=== PATIENT | male | born 1960 | race Caucasian/White ===

== ENCOUNTER 2017-11-24 20:24 | Emergency (ER) | payer OTHER ==
[2017-11-24] MEDS ORDERED: Sodium Chloride 0.9% 1,000 ML ONE (20:44)
[2017-11-24] MEDS ORDERED: Ondansetron HCl/PF 4 MG/2 ML Vial ONE (21:00)
[2017-11-24] MEDS ORDERED: Ketorolac Tromethamine 30 MG/ML VIAL ONE (21:00)
[2017-11-24 21:02] LABS: #Basophils 0.1 thou/uL (0.0-0.2); #Eosinphils 0.3 thou/uL (0.0-0.7); #Lymphocytes 1.3 thou/uL (1.20-3.40); #Monocytes 0.9 thou/uL (0.11-0.59); #Neutrophils 7.9 thou/uL (1.40-6.50); %Basophils 0.9 % (0.0-1.0); %Eosinophils 2.4 % (0.0-10.0); %Lymphocytes 12.3 % (21.0-51.0); %Neutrophils 75.4 % (42.0-75.0); Bilirubin Negative (Negative); Blood, Urine Large (Negative); Clarity Slightly Cloudy (Clear); Glucose, Urine (Dipstick) Negative (Negative); Hemoglobin 16.7 g/dL (14.0-18.0); Leukocyte Negative (Negative); Mean Corpuscular Hemoglobin 27.9 pg (27.0-31.0); Mean Corpuscular Volume 87.1 fL (78.0-98.0); Mean Platelet Volume 7.3 fL (7.4-10.4); Nitrite Negative (Negative); Platelet Count 244 thou/uL (130-400); Protein, Urine (Dipstick) Negative (Neg-Trace); Red Blood Cell (RBC) Count 6.01 mill/uL (4.70-6.10); Specific Gravity, Urine 1.025 (1.005-1.030); Urobilinogen 0.2 mg/dL (0.2-1.0); White Blood Cell (WBC) Count 10.5 thou/uL (4.8-10.8)
[2017-11-24 21:17] LABS: Anion Gap 17 mmol/L (10-20); BUN (Urea Nitrogen) 17 mg/dL (8.4-25.7); Calc. Creatinine Clearance 0 mL/min (70-130); Calcium 9.6 mg/dL (7.8-10.44); Carbon Dioxide 21 mmol/L (22-29); Chloride 109 mmol/L (98-107); Estimated GFR-MDRD 46; Glucose 120 mg/dL (70-105); Potassium 3.7 mmol/L (3.5-5.1); Sodium 143 mmol/L (136-145)
[2017-11-24 21:18] LABS: Squamous Epithelial 0-3 HPF (0-3); WBC/HPF None Seen HPF (0-3)
[2017-11-24 21:19] LABS: Bacteria/HPF None Seen HPF (None Seen)
--- NOTE | 2017-11-24 22:14 | CT ---
CT ABDOMEN AND PELVIS WITHOUT CONTRAST: 11/24/17 HISTORY: Right sided flank pain, hematuria. FINDINGS: Absence of oral and IV contrast reduces the sensitivity of the exam particularly for evaluation of so lid organs and bowel. The lung bases are unremarkable. No free air or free fluid is seen in the abdomen or pelvis. No calci fied gallstones are noted. A small hiatal hernia is present. There are degenerative changes in the sp ine. Postop changes and metallic hardware are seen in the left acetabulum and proximal hip. Bilateral renal calculi are present. There are bilateral renal cysts measuring 17 mm in the right gustavo al cortex and 5.4 cm exophytic cyst in the left kidney. There is right sided perinephric inflammatory change with mild hydroureteronephrosis due to a 2 mm calculus at L4 level. IMPRESSION: 1. 2 mm right ureteral calculus at L4. 2. Bilateral renal calculi. 3. Bilateral renal cysts. POS: SEVEN
== END 2017-11-24 21:48 | disposition home or self-care (01) ==
LOC: NAV ERS 20:24
DX: N13.2 Hydronephrosis with renal and ureteral calculous obstruction (principal); I48.91 Unspecified atrial fibrillation; Z87.442 Personal history of urinary calculi; Z79.899 Other long term (current) drug therapy
CPT/HCPCS: 36415; 74176; 80048; 81003; 81015; 85025; 87086; 96361; 96374; 96375; J1885; J2405; J7050

== ENCOUNTER 2020-10-21 10:16 | Outpatient (CLI) | payer BC | END 2020-10-21 10:17 | disposition home or self-care (01) | LOC: NAV RAD 10:16 | PROVIDERS: ATTEND Internal Medicine | DX: M47.26 Other spondylosis with radiculopathy, lumbar region (principal); Z96.642 Presence of left artificial hip joint | CPT/HCPCS: 72100 ==

== ENCOUNTER 2021-03-07 14:19 | Outpatient (CLI) | payer BC | END 2021-03-07 14:20 | disposition home or self-care (01) | LOC: NAV CT 14:19 | PROVIDERS: ATTEND Internal Medicine | DX: N20.0 Calculus of kidney (principal); M47.816 Spondylosis without myelopathy or radiculopathy, lumbar region; K42.9 Umbilical hernia without obstruction or gangrene; K57.30 Diverticulosis of large intestine without perforation or abscess without bleeding; R93.422 Abnormal radiologic findings on diagnostic imaging of left kidney; N28.1 Cyst of kidney, acquired; N28.89 Other specified disorders of kidney and ureter; Z96.642 Presence of left artificial hip joint; Z98.890 Other specified postprocedural states | CPT/HCPCS: 74176 ==